=== PATIENT | male | born 1990 | race Caucasian/White ===

== ENCOUNTER 2017-11-13 15:05 | Emergency (ER) | payer SELFPAY ==
[2017-11-13 15:37] VITALS: TEMP 98.8
--- NOTE | 2017-11-13 16:01 | RAD ---
EXAM DESCRIPTION: Ankle,Left 3 Views CLINICAL HISTORY: 27 years, Male, fall COMPARISON: None. TECHNIQUE: AP/lateral/oblique of the left ankle FINDINGS: No fracture, dislocation, or disruption of the ankle mortice is present. The bones are normally mineralized and without significant degenerative disease. No soft tissue abnormalities are noted. IMPRESSION: 1. Normal left ankle three views Electronically signed by: Percy Reyes MD 11/13/2017 4:00 PM [facility]
--- NOTE | 2017-11-13 16:19 | ED.PDOC ---
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 2 feet above ground a piece of rock broke where the ladder was placed and twisted his left ankle with sharp pain on weight bearing of laeft ankle afterwards Occurred: just prior to arrival Pain - Lower Extremity: moderate: Left Ankle Method of Injury: fell, twisted Improving Factors: rest Worsening Factors: movement Associated Symptoms: pain on weight bearing Allergies/Adverse Reactions: Allergies Hydrocodone Allergy (Verified 11/13/17 15:37) Home Medications: Ambulatory Orders Tramadol HCl 50 mg PO Q4HR PRN #20 tab 11/13/17 Review of Systems - Review of Systems Constitutional: States: no symptoms reported EENTM: States: no symptoms reported Respiratory: States: no symptoms reported Musculoskeletal: States: see HPI Skin: States: no symptoms reported All other Systems: Reviewed and Negative, No Change from Baseline Past Medical History (General) - Patient Medical History Hx Asthma: No Surgical History: other - Vaccination History Hx Influenza Vaccination: No Hx Pneumococcal Vaccination: No - Social History Hx Tobacco Use: Yes Hx Alcohol Use: No Hx Substance Use: No Hx Substance Use Treatment: No Hx Depression: No Family Medical History - Family History Mother Family History: Unknown Physical Exam - Physical Exam General Appearance: Alert, Comfortable, No apparent distress Eyes, Ears, Nose, Throat: normal ENT inspection Neck: full range of motion, supple Cardiovascular/Respiratory: regular rate, rhythm, normal peripheral pulses, normal breath sounds Gastrointestinal/Abdominal: non-tender, no organomegaly Back: normal inspection, no vertebral tenderness Thigh/Hip: non-tender, no evidence of injury Leg: non-tender, no evidence of injury Ankle: bone tenderness - left ankle, limited ROM - left ankle -pain, soft tissue tenderness, swelling - lateral malleolus Neuro/Tendon: normal sensation, normal motor functions, responds to pain Mental Status: alert, oriented x 3 Skin: normal color Progress - Progress Progress: 11/13/17 16:26 Last Vital Signs Temp 98.8 F 11/13/17 15:25 Pulse 91 H 11/13/17 15:25 Resp 20 11/13/17 15:25 BP 141/95 11/13/17 15:25 Pulse Ox 93 L 11/13/17 15:25 - EKG/XRAY/CT XRAY: ankle - no fracture Departure - Departure Clinical Impression: Sprain of ankle, left Qualifiers: Encounter type: initial encounter Involved ligament of ankle: unspecified ligament Qualified Code(s): S93.402A - Sprain of unspecified ligament of left ankle, initial encounter Time of Disposition: 16:28 Disposition: Discharge to Home or Self Care Departure Forms: ED Discharge - Pt. Copy, Patient Portal Self Enrollment Instructions: Ankle Sprain, DI for Ankle Sprain Referrals: UNKNOWN,PHYSICIAN [Primary Care Provider] - 1-2 Weeks Prescriptions: Tramadol HCl 50 mg PO Q4HR PRN #20 tab PRN Reason: Pain Home Medications: Ambulatory Orders Tramadol HCl 50 mg PO Q4HR PRN #20 tab 11/13/17
[2017-11-13] MEDS ORDERED: traMADol HCL 50 MG TAB PO ONE (16:27)
--- NOTE | 2017-11-13 16:38 | RAD ---
EXAM DESCRIPTION: Tibia/Fibula,Left CLINICAL HISTORY: 27 years Male, fall COMPARISON: None. FINDINGS: Two views of the left leg demonstrate normal mineralization and development without fracture or deformity. No foreign body is noted and no soft tissue gas or soft tissue mass seen. IMPRESSION: Normal left leg. Electronically signed by: Percy Reyes MD 11/13/2017 4:36 PM [facility]
[2017-11-13 16:52] VITALS: BP 145/96; O2SAT 96
== END 2017-11-13 16:45 | disposition home or self-care (01) ==
LOC: ER 15:05
DX: S93.402A Sprain of unspecified ligament of left ankle, initial encounter (principal); X50.1XXA Overexertion from prolonged static or awkward postures, initial encounter

== ENCOUNTER 2018-05-17 20:27 | Emergency (ER) | payer SELFPAY ==
[2018-05-17 20:41] VITALS: TEMP 98.5; O2SAT 98
[2018-05-17] MEDS ORDERED: POVIDONE IODINE 10 % 15 ML UD TOP ONE (21:21)
[2018-05-17] MEDS: TETANUS,DIPHTHERIA,PERTUSSIS 1 EA SYG IM ONE (21:30)
[2018-05-17] MEDS: CIPROFLOXACIN 500 MG TAB PO ONE (21:30)
[2018-05-17] MEDS: SULFA/TRIMETH 800/160 (DS) TAB 1 EA TAB PO ONE (21:30)
[2018-05-17] MEDS: cefTRIAXone SODIUM 1 GM VIAL IM ONE (21:31)
--- NOTE | 2018-05-17 21:44 | ED.PDOC ---
History of Present Illness - General Chief Complaint: Lower Extremity Injury Stated Complaint: glass in left heel Time Seen by Provider: 05/17/18 21:23 Source: patient Exam Limitations: no limitations - History of Present Illness Initial Comments: the patient is a 27-year-old male presenting to the emergency room after having a shard of glass embedded in the heel of his left foot while at home. The glass was of course not clean and neither was his foot. He tried to get it out with a pocket knife for about an hour prior to coming up. The entry wound is approximately 0.8 cm in diameter. After risk and benefits were explained the wound was cleaned externally and then 2 cc of Xylocaine with epinephrine were injected for local anesthetic. The wound was explored with hemostats and did eventually have to be expanded medially approximately 1/2 cm in order to be able to grasp the shard of glass. We were able to extract it and the dimensions of the shard of glass were proximally 1" x 1 cm x 2 mm. X- ray was subsequently performed showing no evidence of any residual foreign body. 1 L of sterile saline with added Betadine was used for pressure irrigation of the site. Timing/Duration: 1-3 hours Severity: severe Improving Factors: nothing Worsening Factors: nothing Associated Symptoms: denies symptoms Allergies/Adverse Reactions: Allergies Hydrocodone Allergy (Verified 11/13/17 15:37) Home Medications: Ambulatory Orders Ciprofloxacin [Cipro] 500 mg PO BID #14 tab 05/17/18 Sulfa/Trimeth 800/160 (Ds) Tab [Bactrim DS Tab] 1 ea PO BID #28 tab 05/17/18 Review of Systems - Review of Systems Constitutional: States: no symptoms reported EENTM: States: no symptoms reported Respiratory: States: no symptoms reported Cardiology: States: no symptoms reported Gastrointestinal/Abdominal: States: no symptoms reported Genitourinary: States: no symptoms reported Musculoskeletal: States: see HPI Skin: States: see HPI Neurological: States: no symptoms reported Endocrine: States: no symptoms reported All other Systems: No Change from Baseline Past Medical History (General) - Patient Medical History Hx Asthma: No Hx Diabetes: No - Vaccination History Hx Tetanus, Diphtheria Vaccination: No Hx Influenza Vaccination: No Hx Pneumococcal Vaccination: No - Social History Hx Tobacco Use: Yes Hx Chewing Tobacco Use: Yes Hx Alcohol Use: No Hx Substance Use: No Hx Substance Use Treatment: No Hx Depression: No Family Medical History - Family History Mother Family History: Unknown Physical Exam - Physical Exam General Appearance: Alert, Comfortable, No apparent distress Eye Exam: bilateral normal Ears, Nose, Throat: normal ENT inspection, normal pharynx Neck: full range of motion, supple Respiratory: no respiratory distress, no accessory muscle use Cardiovascular/Chest: normal peripheral pulses, no edema Peripheral Pulses: dorsalis pedis,right: 2+, dorsalis pedis,left: 2+, posterior tibialis,right: 2+, posterior tibialis,left: 2+ Rectal Exam: deferred Back Exam: normal inspection, no vertebral tenderness Extremity: normal range of motion, no pedal edema, no calf tenderness, normal capillary refill 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 Glass was removed under direct visualization. The wound was irrigated copiously with saline and Betadine. The wound was covered with antibiotic ointment and a Band-Aid. He needs to wash the wound 2-3 times a day with an antibacterial soap such as Dial and cover it with a Band-Aid and antibacterial ointment. He is to use crutches and be nonweightbearing for the next week. due to the nature of the wound, no ramana, sutures or Steri-Strips are being used. he needs to not put on a shoe for at least 4 days. He is going to be placed on 14 days of Bactrim and ciprofloxacin as this wound has a high likelihood of developing an infection. He received the first doses of those here along with a dose of Rocephin and a tetanus shot. ER warnings were given for any evidence of infection. I would like him to have the wound looked at by his primary care doctor in 7 or 8 days before resuming his regular duties. Departure - Departure Clinical Impression: Foreign body in foot, left Qualifiers: Encounter type: initial encounter Qualified Code(s): S90.852A - Superficial foreign body, left foot, initial encounter Disposition: Discharge to Home or Self Care Condition: Fair Departure Forms: ED Discharge - Pt. Copy, Patient Portal Self Enrollment Diet: regular diet Activity: no pushing/pulling with affected limb Prescriptions: Ciprofloxacin [Cipro] 500 mg PO BID #14 tab Sulfa/Trimeth 800/160 (Ds) Tab [Bactrim DS Tab] 1 ea PO BID #28 tab Home Medications: Ambulatory Orders Ciprofloxacin [Cipro] 500 mg PO BID #14 tab 05/17/18 Sulfa/Trimeth 800/160 (Ds) Tab [Bactrim DS Tab] 1 ea PO BID #28 tab 05/17/18 Additional Instructions: the patient is a 27-year-old male presenting to the emergency room secondary to a piece of glass getting stuck in the heel of his left foot. Glass was removed under direct visualization. The wound was irrigated copiously with saline and Betadine. The wound was covered with antibiotic ointment and a Band-Aid. He needs to wash the wound 2-3 times a day with an antibacterial soap such as Dial and cover it with a Band-Aid and antibacterial ointment. He is to use crutches and be nonweightbearing for the next week. due to the nature of the wound, no ramana, sutures or Steri-Strips are being used. he needs to not put on a shoe for at least 4 days. He is going to be placed on 14 days of Bactrim and ciprofloxacin as this wound has a high likelihood of developing an infection. He received the first doses of those here along with a dose of Rocephin and a tetanus shot. ER warnings were given for any evidence of infection. I would like him to have the wound looked at by his primary care doctor in 7 or 8 days before resuming his regular duties.
[2018-05-17] MEDS ORDERED: NEOMYCIN-BACITRACIN-POLYMYXIN 0.9 GM UD TOP ONE (21:57)
[2018-05-17 22:18] VITALS: BP 145/85
--- NOTE | 2018-05-18 08:35 | RAD ---
Single lateral view calcaneus. Indication: possible glass in foot Comparison: None. Impression: No gross radiopaque foreign body identified on the single lateral view. Targeted ultrasound at the site of concern can better evaluate as clinically indicated. Mild calcaneal spurring Achilles tendon insertion and plantar fascia origin. No gross fracture. Electronically signed by: Jake Varma MD 05/18/2018 8:34 AM CDT
== END 2018-05-17 22:19 | disposition home or self-care (01) ==
LOC: ER 20:27
DX: S90.852A Superficial foreign body, left foot, initial encounter (principal); Z23 Encounter for immunization; F17.220 Nicotine dependence, chewing tobacco, uncomplicated; W25.XXXA Contact with sharp glass, initial encounter; Y92.009 Unspecified place in unspecified non-institutional (private) residence as the place of occurrence of the external cause
CPT/HCPCS: 73650; 90471; 90715; J0696